=== PATIENT | male | born 1965 | race Caucasian/White ===

== ENCOUNTER → 2021-04-02 | Outpatient (CLI) | payer BC ==
--- NOTE | 2021-04-02 12:25 | US ---
EXAMINATION TYPE: US abdomen complete DATE OF EXAM: 04/02/2021 COMPARISON: NONE CLINICAL HISTORY: R10.9 unspecified abdominal pain. EXAM MEASUREMENTS: Liver Length: 13.1 cm Gallbladder Wall: 0.1 cm CBD: 0.4 cm Spleen: 11.4 x 4.1 cm Right Kidney: 10.0 x 5.0 x 5.5 cm Left Kidney: 10.1 x 5.3 x 5.3 cm Pancreas: Tail obscured by overlying bowel gas Liver: wnl Gallbladder: wnl Evidence for sonographic Neff's sign: No CBD: wnl Spleen: wnl Right Kidney: No hydronephrosis or masses seen Left Kidney: No hydronephrosis or masses seen Upper IVC: wnl Abd Aorta: wnl IMPRESSION: 1. Normal abdomen ultrasound
== END | disposition home or self-care (01) ==
LOC: RADUSWWP 06:55
PROVIDERS: ATTEND Family Medicine
DX: R10.9 Unspecified abdominal pain (principal)
CPT/HCPCS: 76700